=== PATIENT | female | born 1970 | race African-American/Black ===

== ENCOUNTER 2017-03-27 11:36 | Emergency (ER) | payer OTHER ==
[~2017-03-27] VITALS: Ht 160 cm; Wt 61.7 kg
[~2017-03-27 11:36] MED LIST: AMOXICILLIN 50500 M1 PO; AMOXICILLIN500 M1 PO; APAP/CODEINE ELI5 M1 OR; COLACE 100 MG100 MG PO; CORTISPORIN OTI10 ML OTIC; FLAGYL500 MG PO; IBUPROFEN 600600 M1 PO; IRON325 PO; MAGNESIUM30 MG; MIRALAX255 GM; NAPROSYN500 MG PO; NOHOMEMEDICATIONS; TERAZOL 745 GM VG; TRAMADOL 50 MG50 MG PO; VITAMIN B-12500 MCG; VP-VITE RX TAB1 EACH PO; ZPAK PO
[2017-03-27 11:38] VITALS: BP 121/90
[2017-03-27] MEDS ORDERED: AMOXICILLIN500 M1 PO (12:00)
== END 2017-03-27 12:08 | disposition home or self-care (01) ==
LOC: ER 11:36
DX: H66.92 Otitis media, unspecified, left ear (principal); E07.9 Disorder of thyroid, unspecified

== ENCOUNTER 2017-07-03 18:31 | Emergency (ER) | payer OTHER ==
[~2017-07-03] VITALS: Ht 160 cm; Wt 63.5 kg
[2017-07-03 19:46] LABS: URINE BILIRUBIN NEGATIVE (Negative); URINE BLOOD TRACE (Negative); URINE COLOR YELLOW; URINE GLUCOSE-RANDOM* NEGATIVE (Negative); URINE KETONES NEGATIVE (Negative); URINE PROTEIN (DIPSTICK) NEGATIVE (Negative); URINE SPECIFIC GRAVITY 1.025 (1.003-1.035); URINE UROBILINOGEN 0.2 E.U./dl (0.2-1.0)
[2017-07-03 19:49] LABS: URINE LEUKOCYTES-REFLEX TRACE (Negative)
[2017-07-03] MEDS ORDERED: FLAGYL500 MG PO (21:25)
[2017-07-03 21:41] VITALS: BP 115/74
[2017-07-05 17:09] LABS: CHLAMYDIA TRACHOMATIS-PCR Negative (Negative); NEISSERIA GONORRHEA-PCR Negative (Negative)
== END 2017-07-03 21:42 | disposition home or self-care (01) ==
LOC: ER 18:31
PROVIDERS: Physician Assistant
DX: N76.0 Acute vaginitis (principal)

== ENCOUNTER → 2019-03-27 | Outpatient (CLI) | payer OTHER ==
--- NOTE | 2019-03-27 14:53 | 2DMMODE ---
[facility] [address] 2 D/M-MODE ECHOCARDIOGRAM Name: QUETA BARRETT Room #: REG [facility]#: [id number] ������������� Admission: 03/27/19 ������������� Attend Phys: Jb Morales MD Discharge: ��� ������������� ��� Date of : 74 Date of Service: 03/27/19 1452 �� Report #: [id number] �������� ��������������������������������������������[id number] THIS REPORT FOR: //name// APPROVED REPORT Study performed: 03/27/2019 13:09:43 EXAM: Comprehensive 2D, Doppler, and color-flow Echocardiogram Patient Location: Out-Patient Status: routine BSA: 1.69 HR: 74 bpm BP: 110/74 mmHg Rhythm: NSR/Irregular Other Information Study Quality: Good Indications Chest Pain 2D Dimensions RVDd: 32.43 mm IVSd: 7.06 (7-11mm) LVOT Diam: 19.03 (18-24mm) LVDd: 40.54 mm PWd: 7.23 (7-11mm) Ascending Ao: 22.75 (22-36mm) LVDs: 26.61 (25-40mm) Aortic Root: 25.99 mm Volumes Left Atrial Volume (Systole) Single Plane 4CH: 22.85 mL Single Plane 2CH: 31.50 mL LA ESV Index: 18.00 mL/m2 Aortic Valve AoV Peak Db.: 1.34 m/s AO Peak Gr.: 7.13 mmHg LVOT Max P.58 mmHg LVOT Max V: 0.95 m/s PRADEEP Vmax: 2.02 cm2 Mitral Valve E/A Ratio: 1.4 MV Decel. Time: 162.90 ms MV E Max Db.: 0.73 m/s [facility] [address] [address] 2 D/M-MODE ECHOCARDIOGRAM Name: QUETA BARRETT Room #: REG [facility]#: [id number] ������������� Admission: 03/27/19 ������������� Attend Phys: Jb Morales MD Discharge: ��� ������������� ��� Date of : 74 Date of Service: 03/27/19 1452 �� Report #: [id number] �������� ��������������������������������������������[id number] MV A Db.: 0.53 m/s MV PHT: 47.24 ms IVRT: 65.74 ms Pulmonary Valve PV Peak Db.: 1.15 m/s PV Peak Gr.: 5.31 mmHg Pulmonary Vein P Vein S: 0.62 m/s P Vein D: 0.52 m/s P Vein S/D Ratio: 1.19 Tricuspid Valve TR Peak Db.: 2.25 m/s RAP Estimate: 5.00 mmHg TR Peak Gr.: 20.16 mmHg PA Pressure: 25.00 mmHg Left Ventricle The left ventricle is normal size. There is normal LV segmental wall motion. There is normal left ventricular wall thickness. Left ventricular systolic function is normal. LVEF is 55-60%. The left ventricular diastolic function is normal. Right Ventricle The right ventricle is normal size. The right ventricular systolic function is normal. Atria The left atrium size is normal. The right atrium size is normal. Aortic Valve The aortic valve is normal in structure. No aortic regurgitation is present. There is no aortic valvular stenosis. Mitral Valve The mitral valve is normal in structure. There is no mitral valve regurgitation noted. No evidence of mitral valve stenosis. Tricuspid Valve The tricuspid valve is normal in structure. Mild tricuspid regurgitation. Estimated PAP is 25-30mmHg. Pulmonic Valve The pulmonary valve is normal in structure. Mild pulmonic regurgitation. [facility] [address] [place] [address] 2 D/M-MODE ECHOCARDIOGRAM Name: QUETA BARRETT Room #: REG [facility]#: [id number] ������������� Admission: 03/27/19 ������������� Attend Phys: Jb Morales MD Discharge: ��� ������������� ��� Date of : 74 Date of Service: 03/27/19 1452 �� Report #: [id number] �������� ��������������������������������������������[id number] [employer] The aortic root is normal in size. The ascending aorta is normal in size. IVC is normal in size and collapses >50% with inspiration. Pericardium There is no pericardial effusion. <Conclusion> The left ventricle is normal size. There is normal left ventricular wall thickness. Left ventricular systolic function is normal. The left ventricular diastolic function is normal. The right ventricle is normal size. The left atrium size is normal. The aortic valve is normal in structure. The mitral valve is normal in structure. Mild tricuspid regurgitation. Estimated PAP is 25-30mmHg. ��������������������������������������������� <ELECTRONICALLY SIGNED> ���������������������������������������� By: Jb Morales MD ��������������������������������������������� 03/27/19 1452 145 145 Jb Morales MD /INF
--- NOTE | 2019-03-27 16:30 | EXE ---
[facility] [employer] [place] [address] STRESS ECHOCARDIOGRAM Name: QUETA BARRETT Room #: REG [facility]#: [id number] ������������� Admission: 03/27/19 ������������� Attend Phys: Jb Morales MD Discharge: ��� ������������� ��� Date of : 74 Date of Service: 03/27/19 1629 �� Report #: [id number] �������� ��������������������������������������������[id number] THIS REPORT FOR: //name// APPROVED REPORT Study performed: 03/27/2019 13:48:34 Exam: Stress Echocardiogram Indication: Chest pain Patient Location: Out-Patient Stress Nurse: Lyndsey Mckenzie RN Status: routine Ht: 5 ft 3 in HR: 96 bpm BP: 110/74 mmHg Rhythm: NSR Medical History Medical History: None Medications: None Allergies: No known drug allergies Cardiac Risk Factors: None Previous Cardiac Procedures: None Procedure The patient underwent an Exercise Stress Test using the Jaydon Protocol. Blood pressure, heart rate, and EKG were monitored. An Echocardiogram was performed by a and p technician in four stages in quad fashion. At peak stress, four selected images were obtained and placed side by side with resting images for comparison. Stress Test Details Stress Test: Exercise stress testing was performed using a Jaydon protocol. HR Resting HR: 96 bpm Max Heart Rate (APMHR): 174 bpm Max HR Achieved: 169 bpm Target HR (85% APMHR): 147 bpm % of APMHR: 97 Recovery HR: 113 bpm HR response to stress: Accelerated HR response to stress. Heart rate increased to 140 after 1 minute BP Resting BP: 110/74 mmHg Max BP: 164/72 mmHg [facility] [address] [place] [address] STRESS ECHOCARDIOGRAM Name: QUETA BARRETT Room #: REG CL [facility]#: [id number] ������������� Admission: 03/27/19 ������������� Attend Phys: Jb Morales MD Discharge: ��� ������������� ��� Date of : 74 Date of Service: 03/27/19 1629 �� Report #: [id number] �������� ��������������������������������������������[id number] Recovery BP: 140/70 mmHg BP response to stress: Normal blood pressure response to stress. ECG Resting ECG: Sinus Rhythm Stress ECG: Sinus Rhythm, nonspecific ST-T abnormalities ST Change: Non-ischemic Clinical Reason for Termination: Maximal effort Stress Symptoms: Dyspnea, Fatigue Exercise duration: 5 min sec Highest Stage Achieved: Stage 2: 2.5 mph at 12% grade. Exercise capacity: 7 METs Pre-Stress Echo The resting Echocardiogram showed normal left ventricular contractility with an estimated Ejection Fraction of about 55-60%. Normal wall motion in all segments on baseline images. Post-Stress Echo The stress Echocardiogram showed normal left ventricular contractility with an estimated Ejection Fraction of about 65-70%. Normal augmentation of wall motion in all segments on post stress images. Clinical No clinical or ECG evidence for ischemia. Conclusion Clinical Response: Non-ischemic Exercise Capacity: Below Average Stress ECG Response: Non-ischemic Stress Echo Images: Non-ischemic The left ventricle is normal in size and wall thickness in both the rest and stress images. Other Information Study Quality: Good <Conclusion> [facility] [address] [place] [address] STRESS ECHOCARDIOGRAM Name: QUETA BARRETT Room #: REG [facility].#: [id number] ������������� Admission: 03/27/19 ������������� Attend Phys: Jb Morales MD Discharge: ��� ������������� ��� Date of : 74 Date of Service: 03/27/19 162 �� Report #: [id number] �������� ��������������������������������������������[id number] The left ventricle is normal in size and wall thickness in both the rest and stress images. ��������������������������������������������� <ELECTRONICALLY SIGNED> ���������������������������������������� By: Jb Morales MD ��������������������������������������������� 03/27/19 1629 28 28 Jb Morales MD /INF
== END ==
LOC: CV 11:45
DX: I08.8 Other rheumatic multiple valve diseases (principal); R53.83 Other fatigue

== ENCOUNTER 2021-01-06 02:13 | Emergency (ER) | payer BC, OTHER ==
[~2021-01-06] VITALS: Ht 160 cm; Wt 66.7 kg
[2021-01-06] MEDS ORDERED: SUPER THERAVIT1 EACH PO (02:21)
[2021-01-06 03:14] LABS: ABSOLUTE NEUTROPHILS 2.6 thou/uL (1.4-8.2); BASOPHILS 0.6 % (0.0-2.0); EOSINOPHILS 1.2 % (0.0-3.0); HEMATOCRIT 39.4 % (37.0-47.0); HEMOGLOBIN 12.7 gm/dL (12.0-15.0); LYMPHOCYTES 45.6 % (24.0-44.0); MCHC 32.1 g/dL (28.0-37.0); MCV 90.1 fL (80.0-100.0); MONOCYTES 9.2 % (1.0-8.0); PLATELET COUNT 361 thou/uL (150-400); POLYS 43.4 % (36.0-66.0); RBC 4.38 mil/uL (4.20-5.00); RDW 13.5 % (10.5-14.5); WBC 5.9 thou/uL (4.0-11.0)
[2021-01-06 03:37] LABS: ANION GAP 7 mmol/L (7-16); BUN 16 mg/dL (7-18); CALCIUM 8.7 mg/dL (8.5-10.1); CHLORIDE 101 mmol/L (98-107); CO2 26 mmol/L (21-32); CREATININE 1.1 mg/dL (0.6-1.0); GLUCOSE 134 mg/dL (74-106); POTASSIUM 3.6 mmol/L (3.5-5.1); SODIUM 134 mmol/L (136-145)
[2021-01-06 03:45] LABS: TROPONIN-I <0.06 ng/mL (<0.06)
[2021-01-06 04:48] VITALS: BP 141/79
--- NOTE | 2021-01-06 07:19 | EKG ---
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
== END 2021-01-06 04:51 | disposition home or self-care (01) ==
LOC: ER 02:13
PROVIDERS: Emergency Medicine
DX: R07.89 Other chest pain (principal); Z79.899 Other long term (current) drug therapy